=== PATIENT | female | born 1955 | race Caucasian/White ===

== ENCOUNTER 2016-11-06 14:32 | Outpatient (CLI) | payer MEDICAID | END 2016-11-06 14:33 | disposition home or self-care (01) | DX: M19.072 Primary osteoarthritis, left ankle and foot (principal); M19.071 Primary osteoarthritis, right ankle and foot; M79.672 Pain in left foot; M79.671 Pain in right foot ==

== ENCOUNTER 2017-05-18 16:29 | Outpatient (CLI) | payer MEDICAID ==
[2017-05-19 11:25] LABS: ALBUMIN/GLOBULIN RATIO 1.3 (1.0-2.2); BILIRUBIN,TOTAL 0.5 mg/dL (0.2-1.0); CALCIUM 9.7 mg/dL (8.5-10.3); CREATININE 0.8 mg/dL (0.4-1.0); POTASSIUM 4.6 mmol/L (3.5-5.0); TOTAL PROTEIN 7.5 g/dL (6.7-8.2)
[2017-05-19 11:29] LABS: BASOPHILS # (AUTO) 0.1 10^3/uL (0.0-0.1); BASOPHILS % (AUTO) 0.5 %; EOSINOPHILS % (AUTO) 0.2 %; HCT - HEMATOCRIT 48.4 % (37.0-47.0); HGB - HEMOGLOBIN 15.8 g/dL (12.0-16.0); LYMPHOCYTES # (AUTO) 1.1 10^3/uL (1.5-3.5); MEAN CORPUSCULAR HEMOGLOBIN 34.2 pg (27.0-31.0); MEAN CORPUSCULAR HGB CONC 32.6 g/dL (32.0-36.0); MEAN CORPUSCULAR VOLUME 104.7 fL (81.0-99.0); MEAN PLATELET VOLUME 8.3 fL (7.9-10.8); MONOCYTES # (AUTO) 0.3 10^3/uL (0.0-1.0); MONOCYTES % (AUTO) 2.7 %; NEUTROPHILS # (AUTO) 10.7 10^3/uL (1.5-6.6); NEUTROPHILS % (AUTO) 87.6 %; RED BLOOD COUNT 4.62 10^6/uL (4.20-5.40); RED CELL DISTRIBUTION WIDTH 13.7 % (12.0-15.0); UNCORRECTED WHITE BLOOD COUNT 12.2 x10^3/uL; WHITE BLOOD COUNT 12.2 x10^3/uL (4.8-10.8)
[2017-05-19 12:00] LABS: THYROID STIMULATING HORMONE 0.45 uIU/mL (0.34-5.60)
== END 2017-05-18 16:30 | disposition home or self-care (01) ==
LOC: LAB.S 16:29
PROVIDERS: ATTEND Nurse Practitioner Family
DX: I10 Essential (primary) hypertension (principal); Z13.220 Encounter for screening for lipoid disorders; E06.3 Autoimmune thyroiditis
CPT/HCPCS: 36415; 80053; 80061; 84439; 84443; 85025

== ENCOUNTER 2017-06-25 13:13 | Outpatient (CLI) | payer MEDICAID ==
--- NOTE | 2017-06-26 11:55 | DEXA Report ---
DEXA: 06/25/2017 HISTORY: Steroid induced osteoporosis. TECHNIQUE: Dual energy x-ray absorptiometry (DXA) was performed on a [employer] system. Regions measured are the AP spine, femoral neck, and, if needed, forearm. COMPARISON: None. In accordance with the International Society for Clinical Densitometry (ISCD) guidelines, data from previous exams may be reanalyzed using current recommendations and techniques. This is done to allow a more accurate basis for comparison with the current study. FINDINGS The data for the lumbar spine is as follows: REGION BMD (g/cm/cm) T-SCORE Z-SCORE L1 0.973 -1.3 0.0 L2 1.060 -1.2 0.1 L3 1.085 -1.0 0.3 L4 1.176 -0.2 1.1 TOTAL 1.072 -0.9 0.4 NOTE: All evaluable vertebrae are used for classification. The data for the hip is as follows: REGION BMD (g/cm/cm) T-SCORE Z-SCORE Neck 0.748 -2.1 -0.8 TOTAL 0.789 -1.7 -0.8 IMPRESSION: BONE MINERAL DENSITY IN THE LEFT HIP IS CONSISTENT WITH OSTEOPENIA. PATIENT IS AT INCREASED RISK FOR FRACTURE. RECOMMENDATION: Patients with diagnosis of osteoporosis or osteopenia should have regular bone mineral density assessment. For those eligible for Medicare, routine testing is allowed once every 2 years. Testing frequency can be increased for patients who have rapidly progressing disease or for those who are receiving medical therapy to restore bone mass. COMMENT: World Health Organization (WHO) definitions for osteoporosis and osteopenia: NORMAL BMD: T-score at -1.0 or higher, fracture risk is low. OSTEOPENIA BMD: T-score between -1.0 and -2.5, fracture risk is increased. OSTEOPOROSIS BMD: T-score at -2.5 or lower, fracture risk high. National Osteoporosis Foundation recommends: 1. Obtain adequate dietary calcium (at least 1200 mg per day) and vitamin D (400 -800 international units per day). 2. Participate, as appropriate, in regular weightbearing and muscle- strengthening exercise. 3. Avoid tobacco use and reduce alcohol and caffeine intake. 4. For more detailed information see the website at www.NOF.org. MTDD
== END 2017-06-25 13:14 | disposition home or self-care (01) ==
LOC: DI 13:13
PROVIDERS: ATTEND Nurse Practitioner Family
DX: M81.8 Other osteoporosis without current pathological fracture (principal)
CPT/HCPCS: 77080

== ENCOUNTER 2017-07-20 08:00 | Outpatient (CLI) | payer MEDICAID ==
[2017-07-20 12:18] LABS: CHOL/HDL RATIO 2.3 (<4.4); CHOLESTEROL 138 mg/dL; HDL CHOLESTEROL 59 mg/dL; LDL/HDL RATIO 1.1 (<4.4); TRIGLYCERIDES 78 mg/dL; VLDL CHOLESTEROL 16 mg/dL
== END 2017-07-20 08:01 | disposition home or self-care (01) ==
LOC: LAB.S 08:00
PROVIDERS: ATTEND Nurse Practitioner Family
DX: Z13.220 Encounter for screening for lipoid disorders (principal); E06.3 Autoimmune thyroiditis
CPT/HCPCS: 36415; 80061; 84443

== ENCOUNTER 2017-09-14 08:00 | Outpatient (CLI) | payer MEDICAID ==
[2017-09-14 18:50] LABS: BASOPHILS % (AUTO) 1.1 %; EOSINOPHILS % (AUTO) 4.9 %; HCT - HEMATOCRIT 44.8 % (37.0-47.0); HGB - HEMOGLOBIN 15.1 g/dL (12.0-16.0); LYMPHOCYTES % (AUTO) 38.6 %; MEAN CORPUSCULAR HEMOGLOBIN 34.8 pg (27.0-31.0); MEAN CORPUSCULAR HGB CONC 33.7 g/dL (32.0-36.0); MEAN CORPUSCULAR VOLUME 103.4 fL (81.0-99.0); MEAN PLATELET VOLUME 8.4 fL (7.9-10.8); MONOCYTES % (AUTO) 10.4 %; RED BLOOD COUNT 4.33 10^6/uL (4.20-5.40); RED CELL DISTRIBUTION WIDTH 12.4 % (12.0-15.0); UNCORRECTED WHITE BLOOD COUNT 9.3 x10^3/uL; WHITE BLOOD COUNT 9.3 x10^3/uL (4.8-10.8)
[2017-09-14 19:18] LABS: BUN - BLOOD UREA NITROGEN 14 mg/dL (6-20); CARBON DIOXIDE - CO2 25 mmol/L (21-32); CHLORIDE 106 mmol/L (101-111); CREATININE 0.8 mg/dL (0.4-1.0); GFR - MDRD 72 (>89); GLUCOSE 101 mg/dL (70-100); SODIUM 139 mmol/L (135-145)
[2017-09-14 20:47] LABS: PLATELET ESTIMATE, MANUAL NORMAL (130-450,000) (NORMAL); PLATELET MORPHOLOGY 1+ GIANT PLATELETS (NORMAL)
[2017-09-14 20:49] LABS: NP AUTO DIFFERENTIAL? NO; NP MAN DIFFERENTIAL? YES
== END 2017-09-14 08:01 | disposition home or self-care (01) ==
LOC: LAB.S 08:00
PROVIDERS: ATTEND Nurse Practitioner Family
DX: M48.061 Spinal stenosis, lumbar region without neurogenic claudication (principal); E06.3 Autoimmune thyroiditis; D75.89 Other specified diseases of blood and blood-forming organs
CPT/HCPCS: 36415; 80048; 84443; 85025

== ENCOUNTER 2017-09-29 11:23 | Outpatient (CLI) | payer MEDICAID ==
[2017-09-29 19:24] LABS: FOLATE 15.67 ng/mL (5.90 - >24.8)
== END 2017-09-29 11:24 | disposition home or self-care (01) ==
LOC: LAB.F 11:23
PROVIDERS: ATTEND Nurse Practitioner Family
DX: D75.89 Other specified diseases of blood and blood-forming organs (principal)
CPT/HCPCS: 36415; 82607; 82746

== ENCOUNTER 2017-10-22 14:05 | Outpatient (CLI) | payer MEDICAID ==
[2017-10-22 14:23] LABS: MUDS CUTOFF CONCENTRATIONS CUTOFF CONC BELOW:
[2017-10-22 17:37] LABS: AMPHETAMINE SCREEN,URINE NEGATIVE (NEGATIVE); BENZODIAZEPINES SCREEN, URINE POSITIVE (NEGATIVE); COCAINE SCREEN URINE NEGATIVE (NEGATIVE); METHADONE SCREEN, URINE NEGATIVE (NEGATIVE); METHAMPHETAMINES SCREEN, URINE NEGATIVE (NEGATIVE); OPIATE SCREEN, URINE NEGATIVE (NEGATIVE); OXYCODONE SCREEN, URINE NEGATIVE (NEGATIVE); PROPOXYPHENE SCREEN, URINE NEGATIVE (NEGATIVE); TRICYCLIC ANTIDEPRESSANT,URINE NEGATIVE (NEGATIVE)
== END 2017-10-22 14:06 | disposition home or self-care (01) ==
LOC: LAB.F 14:05
PROVIDERS: ATTEND Psychiatry & Neurology Neurology
DX: M54.16 Radiculopathy, lumbar region (principal); M47.812 Spondylosis without myelopathy or radiculopathy, cervical region
CPT/HCPCS: 80306

== ENCOUNTER 2018-03-18 13:18 | Outpatient (CLI) | payer MEDICAID ==
--- NOTE | 2018-03-19 15:03 | Mammography Report ---
Procedure Date: 03/18/2018 Accession Number: [id number] / [id number] Procedure: MGS - Screening Mammo Dig w/Implants CPT Code: FULL RESULT: EXAM: Screening Mammo Dig w/Implants DATE: 03/18/2018 1:41 PM CLINICAL HISTORY: 62-year-old with history of late childbearing for screening TECHNIQUE: Bilateral CC and MLO views as well as implant displaced views were obtained. COMPARISON: 12/24/2015, 01/10/2015, 09/20/2010 FINDINGS: The breasts demonstrate heterogeneously dense fibroglandular parenchyma bilaterally. Bilateral subpectoral saline implants are present. Benign calcifications are present. No suspicious masses, clustered microcalcifications, or regions of architectural distortion are identified. IMPRESSION: Benign findings RECOMMENDATION: Routine annual screening unless otherwise clinically indicated. BIRADS CATEGORY 2: Benign findings STANDARD QUALIFYING STATEMENTS: 1. This examination was reviewed with the aid of Computer-Aided Detection (CAD). 2. A negative or benign imaging report should not delay biopsy if clinically suspicious findings are present. Consider surgical consultation if warrented. More than 5% of cancers are not identified by imaging. 3. Dense breasts may obscure an underlying neoplasm.
== END 2018-03-18 13:19 | disposition home or self-care (01) ==
LOC: DI.S 13:18
PROVIDERS: ATTEND Nurse Practitioner Family
DX: Z12.31 Encounter for screening mammogram for malignant neoplasm of breast (principal); Z98.82 Breast implant status
CPT/HCPCS: 77067

== ENCOUNTER 2018-05-10 13:21 | Outpatient (CLI) | payer MEDICAID ==
--- NOTE | 2018-05-10 15:48 | XRAY Report ---
Procedure Date: 05/10/2018 Accession Number: [id number] / [id number] Procedure: XRS - Hip w/Pelvis 2-3V LT CPT Code: FULL RESULT: EXAM: Hip w/Pelvis 2-3V LT DATE: 05/10/2018 1:36 PM CLINICAL HISTORY: HIP JOINT PAIN, LEFT COMPARISON: None. TECHNIQUE: 1 view of the pelvis and 1 view of the hip. FINDINGS: Bones: Normal. No fracture or bone lesion. Joints: There is mild femoral acetabular joint space narrowing, right greater than left. Sacroiliac joints are congruent. Soft Tissues: Normal. No soft tissue swelling. IMPRESSION: Degenerative changes, greater in the right hip. RADIA
== END 2018-05-10 13:22 | disposition home or self-care (01) ==
LOC: DI.S 13:21
PROVIDERS: ATTEND Nurse Practitioner Family
DX: M16.0 Bilateral primary osteoarthritis of hip (principal)

== ENCOUNTER 2018-07-19 13:35 | Outpatient (CLI) | payer MEDICARE, OTHER ==
[2018-07-19 17:54] LABS: BASOPHILS # (AUTO) 0.1 10^3/uL (0.0-0.1); BASOPHILS % (AUTO) 0.4 %; EOSINOPHILS # (AUTO) 0.1 10^3/uL (0.0-0.7); HGB - HEMOGLOBIN 14.7 g/dL (12.0-16.0); LYMPHOCYTES # (AUTO) 1.3 10^3/uL (1.5-3.5); LYMPHOCYTES % (AUTO) 9.4 %; MEAN CORPUSCULAR HEMOGLOBIN 34.9 pg (27.0-31.0); MEAN CORPUSCULAR HGB CONC 33.8 g/dL (32.0-36.0); MEAN CORPUSCULAR VOLUME 103.3 fL (81.0-99.0); MEAN PLATELET VOLUME 8.5 fL (7.9-10.8); MONOCYTES # (AUTO) 0.9 10^3/uL (0.0-1.0); MONOCYTES % (AUTO) 6.6 %; NEUTROPHILS # (AUTO) 11.8 10^3/uL (1.5-6.6); NEUTROPHILS % (AUTO) 82.6 %; PLT - PLATELET COUNT 351 10^3/uL (130-450); RED BLOOD COUNT 4.22 10^6/uL (4.20-5.40); RED CELL DISTRIBUTION WIDTH 12.8 % (12.0-15.0); WHITE BLOOD COUNT 14.2 x10^3/uL (4.8-10.8)
[2018-07-19 18:12] LABS: CALCIUM 9.2 mg/dL (8.5-10.3); CREATININE 0.8 mg/dL (0.4-1.0)
== END 2018-07-19 13:36 | disposition home or self-care (01) ==
LOC: LAB.F 13:35
PROVIDERS: ATTEND Nurse Practitioner Family
DX: Z01.818 Encounter for other preprocedural examination (principal)
CPT/HCPCS: 36415; 80048; 85025

== ENCOUNTER 2018-08-03 13:20 | Outpatient (CLI) | payer MEDICARE, OTHER | END 2018-08-03 13:21 | disposition home or self-care (01) | LOC: RT.S 13:20 | PROVIDERS: ATTEND Nurse Practitioner Family | DX: Z01.810 Encounter for preprocedural cardiovascular examination (principal) | CPT/HCPCS: 93005 ==

== ENCOUNTER 2018-11-18 14:49 | Outpatient (CLI) | payer MEDICARE, OTHER ==
--- NOTE | 2018-11-18 16:42 | XRAY Report ---
Reason: BACK PAIN LUMBAR W/RADICULOPATHY,NECK AND BACK MALICK Procedure Date: 11/18/2018 Accession Number: [id number] / [id number] Procedure: XR - Cervical Spine w/Flex/Ext CPT Code: FULL RESULT: EXAM: CERVICAL SPINE RADIOGRAPHY EXAM DATE: 11/18/2018 03:24 PM. CLINICAL HISTORY: Neck pain COMPARISONS: None. TECHNIQUE: 5 views. FINDINGS: Alignment: Grade 1 retrolisthesis C5 with respect to C6 alignment otherwise unremarkable. No abnormal motion between flexion and extension. Bones: The cervical vertebral bodies and posterior elements are well-seen from the skull base through C7-T1. No fractures or bone lesions. Disks: Degenerative disk space narrowing C5-C6. Facets: Scattered multilevel degenerative disease. Neural Foramina: Bilateral C5-C6 neural foraminal encroachment due to degenerative spurs. Soft Tissues: No prevertebral soft tissue swelling. IMPRESSION: Degenerative change cervical spine most marked at C5-C6. RADIA
--- NOTE | 2018-11-18 16:45 | XRAY Report ---
Reason: BACK PAIN LUMBAR W/RADICULOPATHY,NECK AND BACK MALICK Procedure Date: 11/18/2018 Accession Number: [id number] / [id number] Procedure: XR - Thoracic Spine 3 View CPT Code: FULL RESULT: EXAM: THORACIC SPINE RADIOGRAPHY EXAM DATE: 11/18/2018 03:24 PM. CLINICAL HISTORY: BACK PAIN LUMBAR W/RADICULOPATHY,NECK AND BACK MALICK. COMPARISON: 07/30/2009. TECHNIQUE: 3 views. FINDINGS: Alignment: No spondylolisthesis or scoliosis. Bones: No fractures or bone lesions. Question slight height loss of T11 on the right Disks: Scattered slight disk space narrowing. Soft Tissues: The imaged portions of the lungs and cardiomediastinal silhouette are normal. IMPRESSION: Mild progressive thoracic spine degenerative change compared with 2008. RADIA
--- NOTE | 2018-11-18 16:53 | XRAY Report ---
Reason: BACK PAIN LUMBAR W/RADICULOPATHY,NECK AND BACK MALICK Procedure Date: 11/18/2018 Accession Number: [id number] / [id number] Procedure: XR - Lumbar Spine Complete CPT Code: FULL RESULT: EXAM: LUMBOSACRAL SPINE RADIOGRAPHY EXAM DATE: 11/18/2018 03:24 PM. CLINICAL HISTORY: BACK PAIN LUMBAR W/RADICULOPATHY COMPARISONS: 07/30/2009. TECHNIQUE: 5 views. FINDINGS: Alignment: Very slight lower lumbar curve convex right.. Questionable minimal anterior listhesis L4 on 5 Bones: No fractures or bone lesions. Disks: Diffuse multilevel degenerative disk space narrowing most marked L4-L5 and L5-S1 Facets: Scattered mild multilevel degenerative changes. Sacroiliac Joints: Unremarkable. Soft Tissues: Unremarkable IMPRESSION: Significantly progressed multilevel lumbar degenerative disk space narrowing compared with 2008. Lumbar spinal stenosis may be present but could be best assessed by MRI. RADIA
== END 2018-11-18 14:50 | disposition home or self-care (01) ==
LOC: DI 14:49
PROVIDERS: ATTEND Nurse Practitioner Family
DX: M50.322 Other cervical disc degeneration at C5-C6 level (principal); M47.9 Spondylosis, unspecified; M51.34 Other intervertebral disc degeneration, thoracic region; M51.36 Other intervertebral disc degeneration, lumbar region; M51.37 Other intervertebral disc degeneration, lumbosacral region
CPT/HCPCS: 72052; 72072; 72110

== ENCOUNTER 2019-05-27 13:25 | Outpatient (CLI) | payer MEDICARE, OTHER ==
[2019-05-27 17:24] LABS: BASOPHILS % (AUTO) 0.7 %; EOSINOPHILS % (AUTO) 11.9 %; HGB - HEMOGLOBIN 14.9 g/dL (12.0-16.0); MEAN CORPUSCULAR HEMOGLOBIN 34.4 pg (27.0-31.0); MEAN CORPUSCULAR HGB CONC 32.7 g/dL (32.0-36.0); MEAN CORPUSCULAR VOLUME 105.1 fL (81.0-99.0); MEAN PLATELET VOLUME 9.8 fL (7.9-10.8); MONOCYTES % (AUTO) 9.1 %; PLT - PLATELET COUNT 410 10^3/uL (130-450); RED BLOOD COUNT 4.33 10^6/uL (4.20-5.40); RED CELL DISTRIBUTION WIDTH 13.1 % (12.0-15.0)
[2019-05-27 17:38] LABS: ABNORMAL LYMPHS % (MANUAL) 0 %; BAND NEUTROPHILS % (MANUAL) 0 %
[2019-05-27 17:39] LABS: CALCIUM 9.7 mg/dL (8.5-10.3); CREATININE 0.7 mg/dL (0.4-1.0)
[2019-05-27 18:03] LABS: BASOPHILS # (MANUAL) 0.1 10^3/uL (0-0.1); BASOPHILS % (MANUAL) 1 %; DIFFERENTIAL COMMENT MANUAL DIFFERENTIAL; LYMPHOCYTES % (MANUAL) 22 %; MONOCYTES # (MANUAL) 0.9 10^3/uL (0.0-1.0); PLATELET ESTIMATE, MANUAL NORMAL (130-450,000) (NORMAL); PLATELET MORPHOLOGY NORMAL APPEARANCE (NORMAL); RBC MORPHOLOGY (MULTIPLE) 1+ MACROCYTOSIS (NORMAL)
== END 2019-05-27 13:26 | disposition home or self-care (01) ==
LOC: LAB.S 13:25
PROVIDERS: ATTEND Neurological Surgery
DX: M48.062 Spinal stenosis, lumbar region with neurogenic claudication (principal); M54.16 Radiculopathy, lumbar region
CPT/HCPCS: 36415; 80048; 85025

== ENCOUNTER 2019-05-28 11:05 | Outpatient (CLI) | payer MEDICARE, OTHER | END 2019-05-28 11:06 | disposition home or self-care (01) | LOC: RT 11:05 | PROVIDERS: ATTEND Neurological Surgery | DX: Z01.810 Encounter for preprocedural cardiovascular examination (principal); M48.062 Spinal stenosis, lumbar region with neurogenic claudication; M54.16 Radiculopathy, lumbar region | CPT/HCPCS: 93005 ==

== ENCOUNTER 2020-01-05 14:15 | Outpatient (CLI) | payer MEDICARE, OTHER ==
--- NOTE | 2020-01-05 20:30 | XRAY Report ---
Reason: COPD Procedure Date: 01/05/2020 Accession Number: [id number] / [id number] Procedure: XR - Chest 2 View X-Ray CPT Code: 13623 Final Report FULL RESULT: EXAM: CHEST RADIOGRAPHY EXAM DATE: 01/05/2020 02:56 PM. CLINICAL HISTORY: COPD. COMPARISON: THORACIC SPINE 3 VIEW 11/18/2018 3:24 PM. TECHNIQUE: 2 views. FINDINGS: Lungs/Pleura: No focal opacities evident. No pleural effusion. No pneumothorax. Normal volumes. Mediastinum: Heart and mediastinal contours are unremarkable. Other: None. IMPRESSION: No focal consolidation. RADIA
== END 2020-01-05 14:16 | disposition home or self-care (01) ==
LOC: DI 14:15
PROVIDERS: ATTEND Nurse Practitioner Family
DX: J44.1 Chronic obstructive pulmonary disease with (acute) exacerbation (principal)
CPT/HCPCS: 71046

== ENCOUNTER 2020-06-19 13:32 | Outpatient (CLI) | payer MEDICARE, OTHER ==
--- NOTE | 2020-06-19 16:54 | XRAY Report ---
PROCEDURE: Lumbar Spine 2 View INDICATIONS: HISTORY OF CHRONIC LOW BACK PAIN TECHNIQUE: 3 views of the lumbar spine were acquired. COMPARISON: None. FINDINGS: Bones: 5 [id number]-vqgbblw vertebrae are present. There is normal bony alignment. No vertebral body compression fractures. No suspicious bony lesions. There is moderate to severe multilevel degenerat josiane changes, including disc and foraminal narrowing most severe at L4-5, L5-S1. Soft tissues: Overlying bowel gas pattern is normal. No suspicious soft tissue calcifications. IMPRESSION: Multilevel degenerative changes. Reviewed by: Dinah Sevilla MD on 06/19/2020 4:52 PM PDT Approved by: Dinah Sevilla MD on 06/19/2020 4:52 PM PDT Station ID: [id number]
[2020-06-19 20:08] LABS: BASOPHILS # (AUTO) 0.1 10^3/uL (0.0-0.1); BASOPHILS % (AUTO) 0.7 %; EOSINOPHILS % (AUTO) 0.1 %; HGB - HEMOGLOBIN 14.9 g/dL (12.0-16.0); LYMPHOCYTES # (AUTO) 1.1 10^3/uL (1.5-3.5); LYMPHOCYTES % (AUTO) 13.1 %; MEAN CORPUSCULAR HEMOGLOBIN 35.5 pg (27.0-31.0); MEAN CORPUSCULAR HGB CONC 32.7 g/dL (32.0-36.0); MEAN CORPUSCULAR VOLUME 108.3 fL (81.0-99.0); MEAN PLATELET VOLUME 10.1 fL (7.9-10.8); MONOCYTES # (AUTO) 0.6 10^3/uL (0.0-1.0); MONOCYTES % (AUTO) 7.3 %; NEUTROPHILS # (AUTO) 6.7 10^3/uL (1.5-6.6); NEUTROPHILS % (AUTO) 78.3 %; PLT - PLATELET COUNT 383 10^3/uL (130-450); WHITE BLOOD COUNT 8.6 x10^3/uL (4.8-10.8)
[2020-06-19 20:22] LABS: ALBUMIN 4.1 g/dL (3.2-5.5); ALBUMIN/GLOBULIN RATIO 1.3 (1.0-2.2); BILIRUBIN,TOTAL 0.8 mg/dL (0.2-1.0); CALCIUM 9.5 mg/dL (8.5-10.3); CREATININE 0.7 mg/dL (0.4-1.0); TOTAL PROTEIN 7.2 g/dL (6.7-8.2)
== END 2020-06-19 13:33 | disposition home or self-care (01) ==
LOC: DI.S 13:32
DX: M47.816 Spondylosis without myelopathy or radiculopathy, lumbar region (principal); M47.817 Spondylosis without myelopathy or radiculopathy, lumbosacral region; M48.061 Spinal stenosis, lumbar region without neurogenic claudication; M48.07 Spinal stenosis, lumbosacral region; R30.9 Painful micturition, unspecified; I10 Essential (primary) hypertension
CPT/HCPCS: 36415; 72100; 80053; 85025

== ENCOUNTER 2020-07-02 13:12 | Outpatient (CLI) | payer MEDICARE, OTHER ==
--- NOTE | 2020-07-02 15:13 | DEXA Report ---
PROCEDURE: Dexa Spine and/or Hip INDICATIONS: OSTEOPENIA TECHNIQUE: Dual energy x-ray absorptiometry (DXA) was performed on a [employer] System. Regions measur ed are the AP Spine, femoral neck, and if needed forearm. COMPARISON: 06/25/2017 FINDINGS: Lumbar Spine: Bone Mineral Density 1.084 g/cm/cm,T score -0.8, normal, change from previous 1.1% Left Hip: Bone Mineral Density 0.743 g/cm/cm,T score -2.1, osteopenia, change from previous -5.8%, significant Left Femoral Neck: Bone Mineral Density 0.667 g/cm/cm, T score -2.7, osteoporosis (T score greater or equal to -1.0: NORMAL) (T score from -1.1 to -2.4: OSTEOPENIA) (T score less than or equal to -2.5 to: OSTEOPOROSIS) Impression: 1. Osteoporosis of the left femoral neck results in a high-risk of fracture for the patient. 2. Significant interval bone mineral density decrease in the left hip compared to the prior study. Patients with diagnosis of osteoporosis or osteopenia should have regular bone mineral density assess ment. For those eligible for Medicare, routine testing is allowed once every 2 years. Testing frequ ency can be increased for patients who have rapidly progressing disease or for those who are receivin g medical therapy to restore bone mass. Reviewed by: Evon Hutchinson MD on 07/02/2020 3:12 PM PDT Approved by: Evon Hutchinson MD on 07/02/2020 3:12 PM PDT Station ID: [id number]
== END 2020-07-02 13:13 | disposition home or self-care (01) ==
LOC: DI 13:12
PROVIDERS: ATTEND Nurse Practitioner Family
DX: M81.0 Age-related osteoporosis without current pathological fracture (principal)
CPT/HCPCS: 77080

== ENCOUNTER 2020-07-06 14:50 | Outpatient (CLI) | payer MEDICARE, OTHER ==
[2020-07-06 20:28] LABS: CHOL/HDL RATIO 2.2 (<4.4); CHOLESTEROL 162 mg/dL; HDL CHOLESTEROL 74 mg/dL; LDL CHOLESTEROL,CALCULATED 61 mg/dL; LDL/HDL RATIO 0.8 (<4.4); VLDL CHOLESTEROL 27 mg/dL
== END 2020-07-06 14:51 | disposition home or self-care (01) ==
LOC: LAB.S 14:50
PROVIDERS: ATTEND Nurse Practitioner Family
DX: Z13.220 Encounter for screening for lipoid disorders (principal)
CPT/HCPCS: 36415; 80061; 83721

== ENCOUNTER 2020-10-08 14:09 | Outpatient (CLI) | payer MEDICARE, OTHER ==
[2020-10-08 21:07] LABS: THYROID STIMULATING HORMONE 0.24 uIU/mL (0.34-5.60)
[2020-10-08 21:09] LABS: FREE T3 3.61 pg/mL (2.5-3.9); FREE T4 (FREE THYROXINE) 1.1 ng/dL (0.58-1.64)
== END 2020-10-08 14:10 | disposition home or self-care (01) ==
LOC: LAB.S 14:09
PROVIDERS: ATTEND Registered Nurse
DX: E06.3 Autoimmune thyroiditis (principal)
CPT/HCPCS: 36415; 84439; 84443; 84481

== ENCOUNTER 2020-12-25 13:49 | Outpatient (CLI) | payer MEDICARE, OTHER ==
[2020-12-25 20:40] LABS: THYROID STIMULATING HORMONE 0.33 uIU/mL (0.34-5.60)
[2020-12-25 20:41] LABS: FREE T3 3.18 pg/mL (2.5-3.9)
[2020-12-25 20:42] LABS: FREE T4 (FREE THYROXINE) 1.06 ng/dL (0.58-1.64)
== END 2020-12-25 13:50 | disposition home or self-care (01) ==
LOC: LAB.S 13:49
PROVIDERS: ATTEND Registered Nurse
DX: E06.3 Autoimmune thyroiditis (principal); E89.0 Postprocedural hypothyroidism
CPT/HCPCS: 36415; 84439; 84443; 84481

== ENCOUNTER 2021-02-25 15:18 | Outpatient (CLI) | payer MEDICARE, OTHER ==
[2021-02-25 20:54] LABS: THYROID STIMULATING HORMONE 0.24 uIU/mL (0.34-5.60)
[2021-02-25 20:56] LABS: FREE T3 3.69 pg/mL (2.5-3.9); FREE T4 (FREE THYROXINE) 0.97 ng/dL (0.58-1.64)
== END 2021-02-25 15:19 | disposition home or self-care (01) ==
LOC: LAB.S 15:18
PROVIDERS: ATTEND Registered Nurse
DX: E06.3 Autoimmune thyroiditis (principal)
CPT/HCPCS: 36415; 84439; 84443; 84481

== ENCOUNTER 2021-06-01 15:06 | Outpatient (CLI) | payer MEDICARE, OTHER ==
--- NOTE | 2021-06-01 15:49 | XRAY Report ---
PROCEDURE: Chest 2 View X-Ray INDICATIONS: COPD STAGE 3 SEVERE TECHNIQUE: 2 view(s) of the chest. COMPARISON: January 05, 2020 chest x-ray FINDINGS: Surgical changes and devices: None. Lungs and pleura: No pleural effusions or pneumothorax. Lungs are clear. Mediastinum: Mediastinal contours are normal. Heart size is normal. Bones and chest wall: No suspicious bony abnormalities. Degenerative changes of the acromioclavicul ar joints. Soft tissues appear unremarkable. IMPRESSION: No acute cardiopulmonary abnormality. Reviewed by: Ron Cobos on 06/01/2021 2:48 PM JAI Approved by: Ron Cobos on 06/01/2021 2:48 PM JAI Station ID: [id number]
== END 2021-06-01 23:59 | disposition home or self-care (01) ==
LOC: DI.S 15:06
PROVIDERS: ATTEND Emergency Medicine
DX: J44.9 Chronic obstructive pulmonary disease, unspecified (principal)

== ENCOUNTER 2021-07-17 13:46 | Outpatient (CLI) | payer MEDICARE, OTHER ==
[2021-07-17 20:26] LABS: T4 (THYROXINE) 9.13 ug/dL (6.09-12.23)
[2021-07-17 20:29] LABS: THYROID STIMULATING HORMONE 0.91 uIU/mL (0.34-5.60)
== END 2021-07-17 13:47 | disposition home or self-care (01) ==
LOC: LAB.S 13:46
PROVIDERS: ATTEND Registered Nurse
DX: E06.3 Autoimmune thyroiditis (principal)
CPT/HCPCS: 36415; 84436; 84443; 84480

== ENCOUNTER 2021-09-18 13:25 | Outpatient (CLI) | payer MEDICARE, OTHER ==
[2021-09-18 19:53] LABS: BASOPHILS # (AUTO) 0.1 10^3/uL (0.0-0.1); BASOPHILS % (AUTO) 0.3 %; EOSINOPHILS % (AUTO) 0.2 %; HCT - HEMATOCRIT 42.5 % (37.0-47.0); HGB - HEMOGLOBIN 13.9 g/dL (12.0-16.0); LYMPHOCYTES # (AUTO) 1.2 10^3/uL (1.5-3.5); LYMPHOCYTES % (AUTO) 6.5 %; MEAN CORPUSCULAR HEMOGLOBIN 34.3 pg (27.0-31.0); MEAN CORPUSCULAR HGB CONC 32.7 g/dL (32.0-36.0); MEAN CORPUSCULAR VOLUME 104.9 fL (81.0-99.0); MEAN PLATELET VOLUME 9.6 fL (7.9-10.8); MONOCYTES # (AUTO) 0.7 10^3/uL (0.0-1.0); MONOCYTES % (AUTO) 3.9 %; NEUTROPHILS # (AUTO) 15.8 10^3/uL (1.5-6.6); NEUTROPHILS % (AUTO) 88.1 %; PLT - PLATELET COUNT 345 10^3/uL (130-450); RED BLOOD COUNT 4.05 10^6/uL (4.20-5.40); RED CELL DISTRIBUTION WIDTH 12.8 % (12.0-15.0)
[2021-09-18 20:15] LABS: ALBUMIN 3.6 g/dL (3.2-5.5); ALBUMIN/GLOBULIN RATIO 1.1 (1.0-2.2); ALKALINE PHOSPHATASE 48 IU/L (42-121); ALT ALANINE AMINOTRANSFERASE 33 IU/L (10-60); AST ASPARTATE AMINOTRANSFERASE 22 IU/L (10-42); BILIRUBIN,TOTAL 0.3 mg/dL (0.2-1.0); BUN - BLOOD UREA NITROGEN 19 mg/dL (6-20); CARBON DIOXIDE - CO2 24 mmol/L (21-32); CHLORIDE 104 mmol/L (101-111); CHOL/HDL RATIO 2.4 (<4.4); CHOLESTEROL 161 mg/dL; CREATININE 0.7 mg/dL (0.4-1.0); GFR - MDRD 83 (>89); GLUCOSE 143 mg/dL (70-100); HDL CHOLESTEROL 67 mg/dL; LDL CHOLESTEROL,CALCULATED 81 mg/dL; LDL/HDL RATIO 1.2 (<4.4); POTASSIUM 4.5 mmol/L (3.5-5.0); SODIUM 136 mmol/L (135-145); TOTAL PROTEIN 6.8 g/dL (6.7-8.2); TRIGLYCERIDES 63 mg/dL; VLDL CHOLESTEROL 13 mg/dL
== END 2021-09-18 13:26 | disposition home or self-care (01) ==
LOC: LAB.S 13:25
PROVIDERS: ATTEND Registered Nurse
DX: E78.2 Mixed hyperlipidemia (principal); I10 Essential (primary) hypertension; J44.9 Chronic obstructive pulmonary disease, unspecified; M85.80 Other specified disorders of bone density and structure, unspecified site
CPT/HCPCS: 36415; 80053; 80061; 82306; 83721; 85025

== ENCOUNTER 2021-09-22 11:33 | Outpatient (CLI) | payer MEDICARE, OTHER | END 2021-09-22 11:34 | disposition home or self-care (01) | LOC: RT 11:33 | PROVIDERS: ATTEND Registered Nurse | DX: J44.9 Chronic obstructive pulmonary disease, unspecified (principal) | CPT/HCPCS: 94010; 94729 ==

== ENCOUNTER 2021-10-15 14:13 | Outpatient (CLI) | payer MEDICARE, OTHER ==
--- NOTE | 2021-10-21 09:33 | Mammography Report ---
BILATERAL DIGITAL SCREENING MAMMOGRAM 3D/2D WITH AUGMENTATION: 10/15/2021 CLINICAL: Routine screening. Comparison is made to exams dated: 03/08/2018 mammogram, 12/24/2015 mammogram, and 01/10/2015 mammogram - [facility]. The tissue of right is heterogeneously dense. This may lower the sens itivity of mammography. Only a single craniocaudal view of the right breast was able to be obtained. There is moderate motion artifact. A breast implant is present. IMPRESSION: INCOMPLETE: NEEDS ADDITIONAL IMAGING EVALUATION Non diagnostic screening mammogram evaluation. The patient was unable to complete the examination. Recommend patient return for repeat images of both breasts. This exam was interpreted at Station ID: [id number]. NOTE: For mammograms, a report in lay terms will be sent to the patient. Approximately 15% of breast malignancies will not be visualized mammographically. In the management of a palpable breast mass, a negative mammogram must not discourage biopsy of a clinically suspicious lesion. Electronically Signed By: Chang Eng M.D. aty/:10/21/2021 09:03:49 ACR BI-RADS Category 0: Incomplete 3340F C -Heterogeneously dense 0 Unspecified - other recall n/a B
== END 2021-10-15 14:14 | disposition home or self-care (01) ==
LOC: DI.S 14:13
PROVIDERS: ATTEND Registered Nurse
DX: Z12.31 Encounter for screening mammogram for malignant neoplasm of breast (principal); R92.8 Other abnormal and inconclusive findings on diagnostic imaging of breast

== ENCOUNTER 2022-02-14 08:00 | Outpatient (CLI) | payer MEDICARE, OTHER, MEDICAID ==
--- NOTE | 2022-02-14 16:19 | XRAY Report ---
PROCEDURE: Ankle 3 View RT INDICATIONS: RIGHT ANKLE PAIN TECHNIQUE: 3 views of the ankle were acquired. COMPARISON: None. FINDINGS: BONES: No acute, displaced fracture or dislocation. The ankle mortise is maintained on these nonstre ssed views. Prominent plantar calcaneal enthesophyte. SOFT TISSUES: No focal abnormality. IMPRESSION: 1.No acute osseous abnormality. Reviewed by: Gerard Ordonez MD on 02/14/2022 4:17 PM PDT Approved by: Gerard Ordonez MD on 02/14/2022 4:17 PM PDT Station ID: [id number]
== END 2022-02-14 23:59 | disposition home or self-care (01) ==
LOC: DI.S 08:00
PROVIDERS: ATTEND Emergency Medicine
DX: S93.491A Sprain of other ligament of right ankle, initial encounter (principal)

== ENCOUNTER 2022-02-21 14:37 | Outpatient (CLI) | payer MEDICARE, OTHER, MEDICAID ==
--- NOTE | 2022-02-21 16:13 | XRAY Report ---
PROCEDURE: Foot 3 View LT INDICATIONS: BILAT FOOT ANKLE PAIN TECHNIQUE: 3 views of the foot were acquired. COMPARISON: None FINDINGS: Bones: Disuse osteopenia. No fractures or dislocations. No suspicious bony lesions. Soft tissues: No tibiotalar joint effusion. Achilles tendon appears normal. IMPRESSION: Disuse osteopenia. No evidence acute bony abnormality of the left foot. Reviewed by: Cedric Vilchis MD on 02/21/2022 4:11 PM PDT Approved by: Cedric Vilchis MD on 02/21/2022 4:11 PM PDT Station ID: [id number]
--- NOTE | 2022-02-21 16:14 | XRAY Report ---
PROCEDURE: Ankle 3 View BILAT INDICATIONS: BILAT FOOT ANKLE PAIN TECHNIQUE: 3 views of the bilateral ankles were acquired. COMPARISON: Bilateral feet from the same date FINDINGS: Bones: No fractures or dislocations. Ankle mortise is normally aligned. No suspicious bony lesions . Left ankle demonstrates disuse osteopenia, as does the left foot. Soft tissues: No tibiotalar joint effusion. Achilles tendon appears normal. IMPRESSION: No evidence of acute bony abnormality of both ankles. Reviewed by: Cedric Vilchis MD on 02/21/2022 4:12 PM PDT Approved by: Cedric Vilchis MD on 02/21/2022 4:12 PM PDT Station ID: [id number]
--- NOTE | 2022-02-21 16:20 | XRAY Report ---
PROCEDURE: Foot 3 View RT INDICATIONS: BI LATERAL FOOT PAIN TECHNIQUE: 3 views of the foot were acquired. COMPARISON: Same day contralateral left foot radiographs and bilateral ankle radiographs. FINDINGS: Bones: No fractures or dislocations. Tiny plantar calcaneal spur. Mild degenerative change in the m idfoot and toes. No suspicious bony lesions. Soft tissues: No tibiotalar joint effusion. Achilles tendon appears normal. IMPRESSION: Mild degenerative changes in the left foot. Reviewed by: Ramy Myers MD on 02/21/2022 4:18 PM PDT Approved by: Ramy Myers MD on 02/21/2022 4:18 PM PDT Station ID: [id number]
== END 2022-02-21 14:38 | disposition home or self-care (01) ==
LOC: DI 14:37
PROVIDERS: ATTEND Podiatrist
DX: M25.571 Pain in right ankle and joints of right foot (principal); M25.572 Pain in left ankle and joints of left foot; M19.071 Primary osteoarthritis, right ankle and foot; M85.872 Other specified disorders of bone density and structure, left ankle and foot

== ENCOUNTER 2022-03-26 11:25 | Outpatient (CLI) | payer MEDICARE, OTHER, MEDICAID ==
[2022-03-26 14:38] LABS: ABSOLUTE RETICS # AUTO 0.052 10^6/uL (0.020-0.110); BASOPHILS # (AUTO) 0.1 10^3/uL (0.0-0.1); BASOPHILS % (AUTO) 0.4 %; EOSINOPHILS # (AUTO) 0.2 10^3/uL (0.0-0.7); HCT - HEMATOCRIT 42.3 % (37.0-47.0); HGB - HEMOGLOBIN 13.9 g/dL (12.0-16.0); LYMPHOCYTES # (AUTO) 1.7 10^3/uL (1.5-3.5); LYMPHOCYTES % (AUTO) 11.2 %; MEAN CORPUSCULAR HEMOGLOBIN 34.6 pg (27.0-31.0); MEAN CORPUSCULAR HGB CONC 32.9 g/dL (32.0-36.0); MEAN CORPUSCULAR VOLUME 105.2 fL (81.0-99.0); MEAN PLATELET VOLUME 9.9 fL (7.9-10.8); MONOCYTES % (AUTO) 6.7 %; NEUTROPHILS # (AUTO) 11.8 10^3/uL (1.5-6.6); NEUTROPHILS % (AUTO) 80.2 %; PLT - PLATELET COUNT 343 10^3/uL (130-450); RED BLOOD COUNT 4.02 10^6/uL (4.20-5.40); WHITE BLOOD COUNT 14.7 x10^3/uL (4.8-10.8)
[2022-03-26 15:11] LABS: ALBUMIN 3.5 g/dL (3.2-5.5); BILIRUBIN,TOTAL 0.4 mg/dL (0.2-1.0); CREATININE 0.9 mg/dL (0.4-1.0); POTASSIUM 3.9 mmol/L (3.5-5.0); TOTAL PROTEIN 6.9 g/dL (6.7-8.2)
[2022-03-26 15:19] LABS: T4 (THYROXINE) 10.85 ug/dL (6.09-12.23)
[2022-03-26 15:22] LABS: THYROID STIMULATING HORMONE 1.17 uIU/mL (0.34-5.60)
== END 2022-03-26 11:26 | disposition home or self-care (01) ==
LOC: LAB.S 11:25
PROVIDERS: ATTEND Registered Nurse
DX: R53.83 Other fatigue (principal)
CPT/HCPCS: 36415; 80053; 82607; 84436; 84443; 84480; 85025; 85045

== ENCOUNTER 2022-04-04 13:39 | Outpatient (CLI) | payer MEDICARE, OTHER, MEDICAID ==
--- NOTE | 2022-04-04 15:11 | XRAY Report ---
PROCEDURE: Pelvis 1 View INDICATIONS: LOW BACK PAIN TECHNIQUE: A single weightbearing view of the pelvis was acquired. COMPARISON: None. FINDINGS: No fractures. Minimally decreased femoral acetabular joint spaces. Mild superior acetabular spurs and subcortical cystic changes bilaterally and symmetrically. The sacroiliac and pubic symphysis articul ations are normal. Incidental note is made of left-sided L3-4, and diffuse L4-5 and L5-S1 disc height loss and mild endplate spurring. The visible bowel gas pattern is normal. No suspicious soft tissue abnormalities. IMPRESSION: 1. Mild, symmetric femoral acetabular joint degeneration. 2. Moderate lower lumbar degeneration. Reviewed by: Evon Hutchinson MD on 04/04/2022 3:09 PM PDT Approved by: Evon Hutchinson MD on 04/04/2022 3:09 PM PDT Station ID: [id number]
--- NOTE | 2022-04-04 16:28 | XRAY Report ---
PROCEDURE: Lumbar Spine 2 View INDICATIONS: LOW BACK PAIN TECHNIQUE: 3 views of the lumbar spine were acquired. COMPARISON: None. FINDINGS: Bones: 5 ftr-flv-nusnbyz vertebrae are present. There is mild, approximately 5 mm of L4-L5 anteroli sthesis secondary to facet hypertrophy. No vertebral body compression fractures. No suspicious bony lesions. Moderate degenerative disc changes noted throughout the lumbar spine. Moderate L4-L5 and L5- S1 facet arthropathy. Mild L2-L3 and L3-L4 facet arthropathy. Soft tissues: Overlying bowel gas pattern is normal. No suspicious soft tissue calcifications. IMPRESSION: 1. Multilevel degenerative disc disease. 2. Multilevel facet arthropathy. 3. No fracture. No acute osseous lesion. If there is continued clinical concern for pathology, then M RI should be considered for further evaluation. 4. Grade 1 degenerative L4-L5 spondylolisthesis. Reviewed by: Cayla Clay MD, PhD on 04/04/2022 4:26 PM PDT Approved by: Cayla Clay MD, PhD on 04/04/2022 4:26 PM PDT Station ID: [id number]
--- NOTE | 2022-04-04 16:59 | XRAY Report ---
PROCEDURE: Thoracic Spine 2 View INDICATIONS: LOW BACK PAIN TECHNIQUE: 2 views of the thoracic spine were acquired. COMPARISON: 11/18/2010 19. FINDINGS: Bones: No fractures or dislocations. No suspicious bony lesions. 12 pairs of ribs are noted, and a ppear intact where visualized. Moderate degenerative changes noted throughout the thoracic spine. Mi ld facet hypertrophy noted throughout the thoracic spine. Soft tissues: No paravertebral stripe thickening. IMPRESSION: 1. Multilevel degenerative disc disease. 2. Multilevel facet arthropathy. 3. No fracture. No acute osseous lesion. If there is continued clinical concern for pathology, then M RI should be considered for further evaluation. Reviewed by: Cayla Clay MD, PhD on 04/04/2022 4:58 PM PDT Approved by: Cayla Clay MD, PhD on 04/04/2022 4:58 PM PDT Station ID: [id number]
--- NOTE | 2022-04-04 17:00 | XRAY Report ---
PROCEDURE: Cervical Spine 2 View INDICATIONS: NECK PAIN TECHNIQUE: 3 view(s) of the cervical spine were acquired. COMPARISON: None. FINDINGS: Bones: No fractures or dislocations to the T1 level. There is trace, approximately 2 mm of C5-C6 ret rolisthesis. The lateral masses of C1 appear intact on the odontoid view. No suspicious bony lesions . Moderate C5-C6 degenerative disease. Mild C4-C5, C6-C7 and C7-T1 degenerative disc disease. Mild f acet hypertrophy noted throughout the lumbar spine. Soft tissues: No prevertebral soft tissue swelling. IMPRESSION: 1. Multilevel degenerative disc disease. 2. Multilevel facet arthropathy. 3. No fracture. No acute osseous lesion. If there is continued clinical concern for pathology, then M RI should be considered for further evaluation. Reviewed by: Cayla Clay MD, PhD on 04/04/2022 4:59 PM PDT Approved by: Cayla Clay MD, PhD on 04/04/2022 4:59 PM PDT Station ID: [id number]
== END 2022-04-04 13:40 | disposition home or self-care (01) ==
LOC: DI.S 13:39
PROVIDERS: ATTEND Registered Nurse
DX: M16.0 Bilateral primary osteoarthritis of hip (principal); M47.816 Spondylosis without myelopathy or radiculopathy, lumbar region; M47.817 Spondylosis without myelopathy or radiculopathy, lumbosacral region; M43.16 Spondylolisthesis, lumbar region; M43.12 Spondylolisthesis, cervical region; M47.812 Spondylosis without myelopathy or radiculopathy, cervical region

== ENCOUNTER 2022-09-19 13:16 | Outpatient (CLI) | payer MEDICARE, OTHER ==
[2022-09-19 21:10] LABS: CALCIUM 9.8 mg/dL (8.5-10.3); CREATININE 0.9 mg/dL (0.4-1.0); POTASSIUM 4.9 mmol/L (3.5-5.0)
[2022-09-19 21:23] LABS: BASOPHILS # (AUTO) 0.1 10^3/uL (0.0-0.1); BASOPHILS % (AUTO) 0.3 %; EOSINOPHILS % (AUTO) 0.2 %; HCT - HEMATOCRIT 45.6 % (37.0-47.0); HGB - HEMOGLOBIN 14.4 g/dL (12.0-16.0); LYMPHOCYTES # (AUTO) 1.1 10^3/uL (1.5-3.5); LYMPHOCYTES % (AUTO) 7.5 %; MEAN CORPUSCULAR HEMOGLOBIN 33.3 pg (27.0-31.0); MEAN CORPUSCULAR HGB CONC 31.6 g/dL (32.0-36.0); MEAN CORPUSCULAR VOLUME 105.3 fL (81.0-99.0); MEAN PLATELET VOLUME 10.1 fL (7.9-10.8); MONOCYTES # (AUTO) 0.7 10^3/uL (0.0-1.0); MONOCYTES % (AUTO) 4.8 %; NEUTROPHILS # (AUTO) 12.9 10^3/uL (1.5-6.6); NEUTROPHILS % (AUTO) 86.7 %; PLT - PLATELET COUNT 384 10^3/uL (130-450); RED BLOOD COUNT 4.33 10^6/uL (4.20-5.40); RED CELL DISTRIBUTION WIDTH 13.2 % (12.0-15.0); WHITE BLOOD COUNT 14.9 x10^3/uL (4.8-10.8)
[2022-09-19 22:18] LABS: ESTIMATED AVERAGE GLUCOSE 128 mg/dL (70-100); HEMOGLOBIN A1c% 6.1 % (4.27-6.07)
== END 2022-09-19 13:17 | disposition home or self-care (01) ==
LOC: LAB.S 13:16
PROVIDERS: ATTEND Registered Nurse
DX: D72.829 Elevated white blood cell count, unspecified (principal); R73.01 Impaired fasting glucose
CPT/HCPCS: 36415; 80048; 82043; 82570; 83036; 85025

== ENCOUNTER 2022-10-08 13:39 | Outpatient (CLI) | payer MEDICARE, OTHER ==
[2022-10-08 21:05] LABS: CREATININE,URINE 87.2 mg/dL; MICROALBUM/CREATININE RATIO,UR 4.6 ug/mg (<30.0); MICROALBUMIN,URINE 0.4 mg/dL (0-300.0)
== END 2022-10-08 13:40 | disposition home or self-care (01) ==
LOC: LAB.S 13:39
PROVIDERS: ATTEND Registered Nurse
DX: R73.01 Impaired fasting glucose (principal)
CPT/HCPCS: 36415; 80048; 82043; 82570; 83036; 85025

== ENCOUNTER 2023-01-26 13:42 | Outpatient (CLI) | payer MEDICARE, OTHER ==
--- NOTE | 2023-01-27 10:20 | Mammography Report ---
BILATERAL DIGITAL SCREENING MAMMOGRAM 3D/2D WITH AUGMENTATION: 01/26/2023 CLINICAL: Routine screening. Comparison is made to exams dated: 03/08/2018 mammogram, 10/15/2021 mammogram, 12/24/2015 mammogram, and 01/10/2015 mammogram - [facility]. Both breasts are heterogeneously dense, which may obscure small masses (category c / 51-75% glandular tissue). There is a possible new round low density focal asymmetry with an indistinct and circumscribed margin in the left breast at 10 o'clock middle depth. No other significant masses, calcifications, or other findings are seen in either breast. IMPRESSION: INCOMPLETE: NEEDS ADDITIONAL IMAGING EVALUATION The possible new round low density focal asymmetry in the left breast is indeterminate. Additional v iews with possible ultrasound are recommended. Based on the Tyrer Cuzick model (a risk assessment model) the patients lifetime risk is 7.7% and her 10 year risk is 4.6%. According to the ACR, ACS, and NCCN guidelines, an annual breast MRI exam presley g with mammogram is recommended if the patients lifetime risk is 20% or greater. This exam was interpreted at Station ID: [id number]. NOTE: For mammograms, a report in lay terms will be sent to the patient. Approximately 15% of breast malignancies will not be visualized mammographically. In the management of a palpable breast mass, a negative mammogram must not discourage biopsy of a clinically suspicious lesion. Electronically Signed By: Evon donahue/juanita:01/26/2023 17:30:44 ACR BI-RADS Category 0: Incomplete 3340F PARENCHYMAL PATTERN: (D) - The breast(s) demonstrate(s) heterogeneously dense fibroglandular parenchy ma. BI-RADS CATEGORY: (0) - 0 Mammo and [place] [id number] Immediate follow-up LATERALITY: (B)
== END 2023-01-26 13:43 | disposition home or self-care (01) ==
LOC: DI 13:42
PROVIDERS: ATTEND Registered Nurse
DX: Z12.31 Encounter for screening mammogram for malignant neoplasm of breast (principal); R92.8 Other abnormal and inconclusive findings on diagnostic imaging of breast

== ENCOUNTER 2023-02-24 13:01 | Outpatient (CLI) | payer MEDICARE, OTHER ==
--- NOTE | 2023-02-25 12:03 | Ultrasound Report ---
LIMITED ULTRASOUND OF LEFT BREAST: 02/24/2023 CLINICAL: Patient returns today to evaluate a focal asymmetry in the left breast. Comparison is made to exams dated: 02/24/2023 mammogram, 01/26/2023 mammogram, 10/15/2021 mammogram, 03/08/2018 mammogram, 12/24/2015 mammogram, and 01/10/2015 mammogram - [facility]. Real-time ultrasound of the left breast 9-10 o'clock region was performed. Blair scale images of the real-time examination were reviewed. No significant abnormalities were seen sonographically in the left breast in region of possible focal asymmetry. Left breast implant noted. IMPRESSION: NEGATIVE There is no sonographic evidence of malignancy. A 1 year screening mammogram is recommended. Exam findings were conveyed to the patient. This exam was interpreted at Station ID: [id number]. Electronically Signed By: Ramy Myers M.D. slc/:02/24/2023 13:59:00 Ultrasound BI-RADS: 1 Negative BI-RADS CATEGORY: (1) - 1 Mammogram [id number] 1 year screening LATERALITY: (B)
--- NOTE | 2023-02-25 12:03 | Mammography Report ---
UNILATERAL LEFT DIGITAL DIAGNOSTIC MAMMOGRAM 3D/2D WITH SPOT COMPRESSION WITH AUGMENTATION: 02/24/2023 CLINICAL: Patient returns today to evaluate a focal asymmetry in the left breast. Comparison is made to exams dated: 01/26/2023 mammogram, 10/15/2021 mammogram, 03/08/2018 mammogram, 12/04 mammogram, and 01/10/2015 mammogram - [facility]. The left breast is heterogeneously dense, which may obscure small masses (category c / 51-75% glandul ar tissue). There is a possible low density focal asymmetry in the left breast at 10 o'clock middle depth. This is less prominent. No other significant masses or calcifications are seen in the breast. Left breast implant is intact. IMPRESSION: INCOMPLETE: NEEDS ADDITIONAL IMAGING EVALUATION The possible low density focal asymmetry in the left breast is indeterminate. A targeted ultrasound is recommended and will immediately follow. Based on the Tyrer Cuzick model (a risk assessment model) the patients lifetime risk is 7.7% and her 10 year risk is 4.6%. According to the ACR, ACS, and NCCN guidelines, an annual breast MRI exam presley g with mammogram is recommended if the patients lifetime risk is 20% or greater. This exam was interpreted at Station ID: [id number]. NOTE: For mammograms, a report in lay terms will be sent to the patient. Approximately 15% of breast malignancies will not be visualized mammographically. In the management of a palpable breast mass, a negative mammogram must not discourage biopsy of a clinically suspicious lesion. Electronically Signed By: Ramy Myers M.D. slc/:02/24/2023 13:31:11 ACR BI-RADS Category 0: Incomplete 3340F PARENCHYMAL PATTERN: (D) - The breast(s) demonstrate(s) heterogeneously dense fibroglandular stevo vasquez. BI-RADS CATEGORY: (0) - 0 Ultrasound [id number] Immediate follow-up LATERALITY: (B)
== END 2023-02-24 13:02 | disposition home or self-care (01) ==
LOC: DI 13:01
PROVIDERS: ATTEND Registered Nurse
DX: R92.8 Other abnormal and inconclusive findings on diagnostic imaging of breast (principal); Z98.82 Breast implant status

== ENCOUNTER 2023-03-11 14:30 | Outpatient (CLI) | payer MEDICARE, OTHER ==
--- NOTE | 2023-03-11 16:54 | DEXA Report ---
PROCEDURE: Dexa Spine and/or Hip INDICATIONS: POST MENOPAUSAL TECHNIQUE: Dual energy x-ray absorptiometry (DXA) was performed on a [employer] System. Regions measur ed are the AP Spine, femoral neck, and if needed forearm. COMPARISON: 07/02/2020, 06/25/2017 FINDINGS: Lumbar Spine: Bone Mineral Density 1.2 g/cm/cm,T score -0.2. Normal bone density Left Femoral Neck: Bone Mineral Density 0.7 g/cm/cm, T score -2.6. Osteoporosis Impression: By WHO criteria, this patient has normal lumbar spine bone density and left femoral neck osteoporosis Patients with diagnosis of osteoporosis or osteopenia should have regular bone mineral density assess ment. For those eligible for Medicare, routine testing is allowed once every 2 years. Testing frequ ency can be increased for patients who have rapidly progressing disease or for those who are receivin g medical therapy to restore bone mass. Reviewed by: Sandi Mckeon MD on 03/11/2023 4:53 PM PDT Approved by: Sandi Mckeon MD on 03/11/2023 4:53 PM PDT Station ID: [id number]
== END 2023-03-11 14:31 | disposition home or self-care (01) ==
LOC: DI 14:30
PROVIDERS: ATTEND Registered Nurse
DX: Z78.0 Asymptomatic menopausal state (principal); M81.0 Age-related osteoporosis without current pathological fracture

== ENCOUNTER 2023-03-11 14:31 | Outpatient (CLI) | payer MEDICARE, OTHER ==
--- NOTE | 2023-03-11 16:58 | Ultrasound Report ---
PROCEDURE: Carotid Doppler Complete INDICATIONS: ABN CT, VERTIGO TECHNIQUE: Color and pulse Doppler interrogation was performed of both carotid systems, with image documentation and velocity measurements. COMPARISON: None. FINDINGS: Right side: Brachial blood pressure: 104/55 mm Hg. Common carotid artery peak systolic velocity: 44 cm/sec. Internal carotid artery peak systolic velocity: 110 cm/sec. Internal carotid artery end diastolic velocity: 39 cm/sec. External carotid artery peak systolic velocity: 170 cm/sec. ICA/CCA peak systolic ratio: 2.5 . Blair scale imaging description: Moderate atherosclerotic plaques are noted in right carotid bulb ext ending to origin of right internal carotid artery. Percent internal carotid artery stenosis: Less than 50% stenosis.. Vertebral artery: Flow direction is antegrade. Left side: Brachial blood pressure: 114/50 mm Hg. Common carotid artery peak systolic velocity: 53 cm/sec. Internal carotid artery peak systolic velocity: 115 cm/sec. Internal carotid artery end diastolic velocity: 44 cm/sec. External carotid artery peak systolic velocity: 131 cm/sec. ICA/CCA peak systolic ratio: 2.1 . Blair scale imaging description: Mild to moderate atherosclerotic plaques are noted in left carotid b ulb and origin of left internal carotid artery. Percent internal carotid artery stenosis: Less than 50% stenosis.. Vertebral artery: Flow direction is antegrade. IMPRESSION: 1. In the right internal carotid artery, there is less than 50% stenosis based on peak systolic veloc ity criteria. 2. In the left internal carotid artery, there is and 50% stenosis based on peak systolic velocity cri teria. 3. Antegrade blood flow within the right vertebral artery. 4. Antegrade blood flow within the left vertebral artery. The estimate of stenosis included in the report of the imaging study was calculated using the [facility]-end orsed standards of carotid artery stenosis. Reviewed by: Salinas Hoover MD on 03/11/2023 4:57 PM PDT Approved by: Salinas Hoover MD on 03/11/2023 4:57 PM PDT Station ID: [id number]
== END 2023-03-11 14:32 | disposition home or self-care (01) ==
LOC: DI 14:31
PROVIDERS: ATTEND Internal Medicine
DX: R93.89 Abnormal findings on diagnostic imaging of other specified body structures (principal); R42 Dizziness and giddiness; I65.23 Occlusion and stenosis of bilateral carotid arteries; Z78.0 Asymptomatic menopausal state; M81.0 Age-related osteoporosis without current pathological fracture
CPT/HCPCS: 93880

== ENCOUNTER 2023-03-11 16:35 | Outpatient (CLI) | payer OTHER, MEDICARE | END 2023-03-11 16:36 | disposition EMS.NT | LOC: EMS 16:35 | DX: Z04.1 Encounter for examination and observation following transport accident (principal) ==

== ENCOUNTER 2023-05-18 13:47 | Outpatient (CLI) | payer MEDICARE, OTHER ==
[2023-05-18 20:07] LABS: BASOPHILS # (AUTO) 0.1 10^3/uL (0.0-0.1); BASOPHILS % (AUTO) 0.5 %; EOSINOPHILS % (AUTO) 0.1 %; HCT - HEMATOCRIT 42.7 % (37.0-47.0); HGB - HEMOGLOBIN 14.2 g/dL (12.0-16.0); LYMPHOCYTES # (AUTO) 2.1 10^3/uL (1.5-3.5); LYMPHOCYTES % (AUTO) 20.3 %; MEAN CORPUSCULAR HEMOGLOBIN 34.6 pg (27.0-31.0); MEAN CORPUSCULAR HGB CONC 33.3 g/dL (32.0-36.0); MEAN CORPUSCULAR VOLUME 104.1 fL (81.0-99.0); MEAN PLATELET VOLUME 10.2 fL (7.9-10.8); MONOCYTES # (AUTO) 0.7 10^3/uL (0.0-1.0); MONOCYTES % (AUTO) 6.9 %; NEUTROPHILS # (AUTO) 7.4 10^3/uL (1.5-6.6); NEUTROPHILS % (AUTO) 71.9 %; PLT - PLATELET COUNT 329 10^3/uL (130-450); RED CELL DISTRIBUTION WIDTH 12.7 % (12.0-15.0); WHITE BLOOD COUNT 10.3 x10^3/uL (4.8-10.8)
[2023-05-18 20:30] LABS: ALBUMIN 3.9 g/dL (3.2-5.5); ALBUMIN/GLOBULIN RATIO 1.3 (1.0-2.2); ALKALINE PHOSPHATASE 42 IU/L (42-121); ALT ALANINE AMINOTRANSFERASE 12 IU/L (10-60); AST ASPARTATE AMINOTRANSFERASE 15 IU/L (10-42); BILIRUBIN,TOTAL 0.3 mg/dL (0.2-1.0); BUN - BLOOD UREA NITROGEN 19 mg/dL (6-20); CALCIUM 9.4 mg/dL (8.5-10.3); CARBON DIOXIDE - CO2 27 mmol/L (21-32); CHLORIDE 109 mmol/L (101-111); CHOL/HDL RATIO 2.6 (<4.4); CHOLESTEROL 123 mg/dL; CREATININE 0.8 mg/dL (0.6-1.3); GFR - MDRD 71 (>89); GLUCOSE 118 mg/dL (74-104); HDL CHOLESTEROL 48 mg/dL; LDL CHOLESTEROL,CALCULATED 47 mg/dL; POTASSIUM 4.2 mmol/L (3.5-4.5); SODIUM 138 mmol/L (135-145); TRIGLYCERIDES 142 mg/dL (48-352); VLDL CHOLESTEROL 28 mg/dL
[2023-05-18 20:43] LABS: THYROID STIMULATING HORMONE 1.06 uIU/mL (0.34-5.60)
[2023-05-18 22:23] LABS: ESTIMATED AVERAGE GLUCOSE 114 mg/dL (70-100); HEMOGLOBIN A1c% 5.6 % (4.27-6.07)
== END 2023-05-18 13:48 | disposition home or self-care (01) ==
LOC: LAB.S 13:47
PROVIDERS: ATTEND Registered Nurse
DX: E06.3 Autoimmune thyroiditis (principal); Z79.899 Other long term (current) drug therapy; Z13.220 Encounter for screening for lipoid disorders; R73.01 Impaired fasting glucose
CPT/HCPCS: 36415; 80053; 80061; 83036; 83721; 84443; 85025

== ENCOUNTER 2023-06-09 13:58 | Outpatient (CLI) | payer MEDICARE, OTHER ==
[2023-06-09] MEDS: iohexoL-300 100 ML VIAL IVP ONE (14:15)
--- NOTE | 2023-06-09 16:50 | CT Report ---
PROCEDURE: CT Angio Neck W INDICATIONS: CAROTID ARTERY STENOSIS, CARRANZA CONTRAST: 80mL Omni 300 TECHNIQUE: Helical axial CT of the neck was obtained during the arterial phase of an intravenous con trast injection utilizing an angiographic protocol. No MIP or 3-D shaded surface reformats are submit mayo. For radiation dose reduction, the following was used: automated exposure control, adjustment o f mA and/or kV according to patient size. COMPARISON: None. FINDINGS: Image quality: Excellent. Carotid system: The great vessels demonstrate a conventional anatomy as they arise from the aortic a rch. The origins of the common carotid arteries appear patent. The common carotid arteries demonstr ate normal calibers and courses. Atherosclerotic plaque noted in both proximal ICA without significan t stenosis utilizing NASCET criteria. Additionally, atherosclerotic calcification noted in the cavern ous and intracranial segments of both distal ICA without significant stenosis. Posterior circulation: The origins of the vertebral arteries appear patent. The more superior porti ons of the vertebral arteries demonstrate normal course and caliber. They join to form a normal appe aring basilar artery. Soft tissues: Moderate biapical pulmonary emphysema present. There is a spiculated nodule in the left upper lobe measuring 9 mm in diameter Bones: Degenerative disc space narrowing and hypertrophic facet joints in the mid cervical spine resu lts in grade 1 retrolisthesis at C5-6, resulting in moderate central stenosis. IMPRESSION: No evidence of proximal ICA stenosis. Degenerative disc disease and arthropathy in the cervical spine results in moderate central stenosis C5-6. Biapical pulmonary emphysema and spiculated suspicious nodule left upper lobe. Advise dedicated CT ch est and/or PET/CT The estimate of stenosis included in the report of the imaging study was calculated using the NASCET method Reviewed by: Jc Chirinos MD on 06/09/2023 3:49 PM JAI Approved by: Jc Chirinos MD on 06/09/2023 3:49 PM AKALYCIA Station ID: [id number]
== END 2023-06-09 13:59 | disposition home or self-care (01) ==
LOC: DI 13:58
PROVIDERS: ATTEND Registered Nurse
DX: I65.29 Occlusion and stenosis of unspecified carotid artery (principal); Z87.898 Personal history of other specified conditions; M47.812 Spondylosis without myelopathy or radiculopathy, cervical region; M50.322 Other cervical disc degeneration at C5-C6 level; M48.02 Spinal stenosis, cervical region; J43.9 Emphysema, unspecified; R91.1 Solitary pulmonary nodule
CPT/HCPCS: 70498; Q9967

== ENCOUNTER 2023-12-25 13:31 | Outpatient (CLI) | payer MEDICARE, OTHER ==
[2023-12-25 20:45] LABS: THYROID STIMULATING HORMONE 1.29 uIU/mL (0.34-5.60)
== END 2023-12-25 13:32 | disposition home or self-care (01) ==
LOC: LAB.S 13:31
PROVIDERS: ATTEND Registered Nurse
DX: R53.83 Other fatigue (principal); L65.9 Nonscarring hair loss, unspecified
CPT/HCPCS: 36415; 84436; 84443; 84480

== ENCOUNTER 2024-01-19 08:00 | Outpatient (CLI) | payer MEDICARE, OTHER ==
[2024-01-19 19:46] LABS: BILIRUBIN,URINE NEGATIVE (NEGATIVE); GLUCOSE, URINE (UA) NEGATIVE (NEGATIVE); KETONES,URINE (UA) NEGATIVE (NEGATIVE); LEUKOCYTE ESTERASE, URINE NEGATIVE (NEGATIVE); NITRITE,URINE NEGATIVE (NEGATIVE); OCCULT BLOOD,URINE NEGATIVE (NEGATIVE); PROTEIN,URINE NEGATIVE (NEGATIVE); UROBILINOGEN,URINE 0.2 (NORMAL) E.U./dL (NORMAL)
[2024-01-19 19:50] LABS: CLARITY,URINE CLEAR (CLEAR)
[2024-01-19 19:52] LABS: BACTERIA,URINE Few /HPF (None Seen); RBC,URINE None Seen /HPF (0-5); SQUAMOUS EPITHELIAL CELL,UR MANY Squamous (<= Few); WBC,URINE 0-3 /HPF (0-5)
== END 2024-01-19 23:59 | disposition home or self-care (01) ==
LOC: LAB.S 08:00
PROVIDERS: ATTEND Physician Assistant Medical
DX: R30.0 Dysuria (principal)
CPT/HCPCS: 81001; 87086